=== PATIENT | male | born 1945 | race Caucasian/White ===

== ENCOUNTER 2016-09-19 17:22 | Inpatient (IN) | payer MEDICARE, OTHER ==
[~2016-09-19] VITALS: Ht 172.7 cm; Wt 80.6 kg
[~2016-09-19 17:22] MED LIST: DIOVAN HCT 160/1 TAB PO; LIPITOR10 MG PO; MULTI-DAY VITAM1 TAB PO; XANAX0.5 MG PO
[2016-09-19] MEDS ORDERED: ED-SPAZ0.125 MG PO (17:42)
[2016-09-19] MEDS ORDERED: CIPRO500 MG PO (17:44)
[2016-09-19 17:45] VITALS: BP 117/71; Ht 172.7 cm; Wt 80.6 kg
[2016-09-19 18:35] LABS: HEMATOCRIT 40.7 % (42.0-54.0); HEMOGLOBIN 14.6 g/dL (13.5-17.5); MCHC 35.9 g/dL (31.0-37.0); MCV 94.7 fL (80.0-100.0); MEAN PLATELET VOLUME 9.9 fL (7.4-10.4); PLATELET COUNT 171 10x3/uL (130-400); RDW 12.7 % (11.5-14.5); WBC 21.8 10x3/uL (4.8-10.8)
[2016-09-19 18:58] LABS: ALBUMIN 3.5 g/dL (3.4-5.0); ALKALINE PHOSPHATASE 68 U/L (46-116); ALT (SGPT) 21 U/L (10-68); AMYLASE - SERUM 28 U/L (25-115); CALC OSMOLALITY 279 mosm/kg (275-300); CALCIUM 8.8 mg/dL (8.5-10.1); CARBON DIOXIDE 26.2 mmol/L (21.0-32.0); CHLORIDE - SERUM 102 mmol/L (98-107); CREATININE - SERUM 0.7 mg/dL (0.6-1.3); GLUCOSE 112 mg/dL (74-106); LIPASE 88 U/L (73-393); POTASSIUM - SERUM 3.4 mmol/L (3.5-5.1); PROTEIN - SERUM 6.4 g/dL (6.4-8.2); SODIUM 140 mmol/L (136-145); UREA NITROGEN 13 mg/dL (7-18); eGFR NON AFRICAN AMERICAN > 90 mL/min (90-120)
[2016-09-19 19:00] VITALS: BP 105/64
[2016-09-19 19:02] LABS: EOSINOPHILS 4 % (0-7); LYMPHOCYTES 12 % (15-50); MONOCYTES 3 % (2-11); NEUTROPHILS 81 % (40-80); PLATELET ESTIMATE NORMAL
[2016-09-20] VITALS: BP 107/68
[2016-09-20 04:34] VITALS: BP 105/63
--- NOTE | 2016-09-20 05:40 | NUR ---
NURSE ROUNDS 09/19/16 20:30 - PT LYING IN BED, FAMILY AT BEDSIDE. PT REQUESTED SOMETHING TO EAT, HOWEVER, I EXPLAINED THE NEED FOR GUT REST. I HAVE GIVEN PT ICE CHIPS UNTIL PT CAN BE ADVANCED IN HIS DIET. CONTINUE TO MONITOR CLOSELY.
[2016-09-20 06:00] LABS: BASOPHILS 0.1 % (0-2); EOSINOPHILS 0.8 % (0-7); HEMATOCRIT 38.6 % (42.0-54.0); HEMOGLOBIN 13.6 g/dL (13.5-17.5); IMMATURE GRANULOCYTES 0.3 % (0-5); LYMPHOCYTES 17.6 % (15-50); MCH 33.3 pg (26.0-34.0); MCHC 35.2 g/dL (31.0-37.0); MCV 94.6 fL (80.0-100.0); MEAN PLATELET VOLUME 10.3 fL (7.4-10.4); NEUTROPHILS 75.2 % (40-80); PLATELET COUNT 178 10x3/uL (130-400); RBC 4.08 10x6/uL (4.20-6.10); RDW 12.7 % (11.5-14.5)
[2016-09-20 06:03] LABS: WBC 14.6 10x3/uL (4.8-10.8)
[2016-09-20 06:12] LABS: CALC OSMOLALITY 276 mosm/kg (275-300); CALCIUM 8.5 mg/dL (8.5-10.1); CARBON DIOXIDE 27.7 mmol/L (21.0-32.0); CHLORIDE - SERUM 104 mmol/L (98-107); CREATININE - SERUM 0.7 mg/dL (0.6-1.3); GLUCOSE 113 mg/dL (74-106); POTASSIUM - SERUM 3.3 mmol/L (3.5-5.1); SODIUM 139 mmol/L (136-145); eGFR NON AFRICAN AMERICAN > 90 mL/min (90-120)
[2016-09-20 06:18] LABS: UREA NITROGEN 8 mg/dL (7-18)
--- NOTE | 2016-09-20 07:45 | NUR ---
AM ROUNDING DOME WITH NO COMPLAINTS FROM PATIENT AT PRESENT TIME. NO PAIN. LEFT FA SEEN WITH 1/2 NS INFUSING AT 125 CC/HR. ON EP, POTASSIUM BEEN SUPPLEMENTED. WILL MONITOR AND SEE IF WE CAN GET SOME FOOD FOR HIM. DR LARIOS IS ON THE FLOOR.
[2016-09-20 08:19] VITALS: BP 106/65
--- NOTE | 2016-09-20 08:27 | NUR ---
UA SENT TO LAB ORDERED.
[2016-09-20 08:58] LABS: APPEARANCE CLEAR (CLEAR); BILIRUBIN NEGATIVE (NEGATIVE); COLOR YELLOW (YELLOW); GLUCOSE NEGATIVE (NEGATIVE); KETONE NEGATIVE (NEGATIVE); LEUKOCYTE ESTERASE NEGATIVE (NEGATIVE); NITRITE NEGATIVE (NEGATIVE); PROTEIN NEGATIVE (NEGATIVE); SPECIFIC GRAVITY 1.005 (1.005-1.020); UROBILINOGEN NORMAL (NORMAL)
[2016-09-20 08:59] LABS: BACTERIA FEW /hpf (NONE SEEN); EPITHELIAL CELLS RARE /hpf (0-5); RED CELLS - URINE 0-5 /hpf (0-5); WHITE CELLS - URINE RARE /hpf (0-5)
--- NOTE | 2016-09-20 09:18 | NUR ---
CALLED DR LARIOS OFFICE R/T BLOOD PRESSURE 106/65 TO ASK ABOUT HOLDING DIOVAN AND HCTZ FOR THIS AM. AWAITING CALL BACK.
--- NOTE | 2016-09-20 09:43 | NUR ---
NEW ORDERS PER DR LARIOS.
--- NOTE | 2016-09-20 10:38 | NUR ---
PER RT, O2 LOWERED TO 8L PER OXIMIZER. 1036-RT TO LOWER O2 TO 6L PER OXIMIZER.
--- NOTE | 2016-09-20 11:27 | NUR ---
K+ RE-DRAW WITH RESULTS OF 3.8
[2016-09-20 12:06] VITALS: BP 107/68
--- NOTE | 2016-09-20 15:15 | NUR ---
PATIENT HAS BEEN UP AMBULATING IN HALLWAY SEVERAL TIMES THIS SHIFT. DENIES NEEDS.
--- NOTE | 2016-09-20 15:40 | NUR ---
CALLED TO ROOM WITH PATIENT WANTING AN IBUPROFEN FOR HIS RIGHT ARM (SHOULDER PAIN). STATES THAT HE TAKE 1-2 A DAY. I TOLD HIM THAT WE DID NOT HAVE ANY ORDERED FOR HIM BUT I WOULD BE HAPPY TO CALL THE DOCTOR. HE SAID NO THAT IT WAS NOT THAT BAD.
[2016-09-20 15:47] VITALS: BP 104/67
--- NOTE | 2016-09-20 18:03 | NUR ---
MIRALAX GIVEN TO PATIENT ORDERED MIXED WITH WATER. DENIES ANY NEEDS AT THIS TIME.
[2016-09-20 21:00] VITALS: BP 128/76
[2016-09-21 00:32] VITALS: BP 136/87
[2016-09-21 04:05] VITALS: BP 137/90
[2016-09-21 05:41] LABS: BASOPHILS 0.1 % (0-2); EOSINOPHILS 3.4 % (0-7); HEMATOCRIT 38.1 % (42.0-54.0); HEMOGLOBIN 13.2 g/dL (13.5-17.5); IMMATURE GRANULOCYTES 0.3 % (0-5); LYMPHOCYTES 29.6 % (15-50); MCH 33.2 pg (26.0-34.0); MCHC 34.6 g/dL (31.0-37.0); MCV 95.7 fL (80.0-100.0); MEAN PLATELET VOLUME 10.3 fL (7.4-10.4); MONOCYTES 7.4 % (2-11); NEUTROPHILS 59.2 % (40-80); PLATELET COUNT 170 10x3/uL (130-400); RBC 3.98 10x6/uL (4.20-6.10); RDW 12.9 % (11.5-14.5)
[2016-09-21 05:53] LABS: CALC OSMOLALITY 277 mosm/kg (275-300); CALCIUM 8.2 mg/dL (8.5-10.1); CARBON DIOXIDE 26.4 mmol/L (21.0-32.0); CHLORIDE - SERUM 107 mmol/L (98-107); CREATININE - SERUM 0.6 mg/dL (0.6-1.3); GLUCOSE 102 mg/dL (74-106); POTASSIUM - SERUM 3.5 mmol/L (3.5-5.1); SODIUM 141 mmol/L (136-145); eGFR NON AFRICAN AMERICAN > 90 mL/min (90-120)
[2016-09-21 05:58] LABS: UREA NITROGEN 5 mg/dL (7-18)
[2016-09-21] MEDS ORDERED: FLAGYL500 MG PO (06:58)
[2016-09-21] MEDS ORDERED: MIRALAX17 GM PO (06:59)
--- NOTE | 2016-09-21 07:18 | NUR ---
AM ROUNDING DONE WITH PATIENT LAYING ON BACK APPEARING TO BE ASLEEP. RESP ARE EVEN AND NON LABORED. WHILE WRITING ON THE WHITE BOARD, HE WAKES UP AND STATES THAT DR LARIOS WILL BE DISCHARGING HIM. ON EP, LAB VALUES ARE GOOD. ON ROOM AIR. D5NS INFUSING AT 50 CC/HR WITHOUT PROBLEMS TO LEFT FA. WILL MONITOR.
[2016-09-21 08:18] VITALS: BP 110/65
--- NOTE | 2016-09-21 09:55 | NUR ---
SALINE LOCK REMOVED WITH CATH TIP INTACT. VERBAL AND WRITTEN DISCHARGE INSTRUCTIONS GIVEN TO PATIENT AND . AGAIN, I EXPLAINED WHAT WAS CONSIDERED A FULL LIQUID DIET UNTIL SEEN BY DR LARIOS. DISCHARGED HOME VIA WHEELCHAIR.
--- NOTE | 2016-09-21 10:03 | NUR ---
Patient Name: CARMELO ZELAYA Admission Status: Elective Accout number: [id number] Admission Date: 09-19-2016 : 1945 Admission Diagnosis: Attending: JORDIN Current LOS: 2 Anticipated DC Date: 09-21-2016 Planned Disposition: Home Primary Insurance: MEDICARE PART A ONLY Discharge Planning Comments: * Is the patient Alert and Oriented? Yes 0 * How many steps to enter\exit or inside your home? NONE 0 * PCP DR. LARIOS 0 * Pharmacy [facility] 0 * Preadmission Environment Home Alone 0 * ADLs Independent 0 * Equipment None 0 * Other Equipment NO MEDICAL EQUIPMENT PROVIDER PREFERENCE 0 * List name and contact numbers for known caregivers / representatives who currently or will assist patient after discharge: GODWIN RODRIGUEZ, FRIEND, 0 * Community resources currently utilized None 0 * Please name any agencies selected above. NONE 0 * Additional services required to return to the preadmission environment? No 0 * Can the patient safely return to the preadmission environment? Yes 0 * Has this patient been hospitalized within the prior 30 days at any hospital? No 0 CM MET WITH PT IN ROOM TO DISCUSS DISCHARGE PLANNING AND NEEDS. PT REPORTS LIVING AT HOME INDEPENDENTLY AND ALONE, HIS FRIEND IS WITH HIM MOST OF THE TIME BUT DOES NOT LIVE WITH HIME. PT HAS NO MEDICAL EQUIPMENT AND NO OUTSIDE SERVICES ASSISTING IN THE HOME. CM DISCUSSED AVAILABILITY OF HOME HEALTH, REHAB SERVICES AND MEDICAL EQUIPMENT. PT DENIES DISCHARGE NEEDS, REPORTS HIS FRIEND IS HERE NOW TO PICK HIM UP FOR TRANPORT HOME NOW. BEDSIDE NURSE NOTIFIED. Poolroom Table Attendant: Pino Robison
== END 2016-09-21 09:58 | disposition home or self-care (01) | DRG 392 ==
LOC: D.M2 17:22
PROVIDERS: ADMIT Family Medicine
DX: K57.32 Diverticulitis of large intestine without perforation or abscess without bleeding (principal); I10 Essential (primary) hypertension; E78.5 Hyperlipidemia, unspecified; Z86.010 Personal history of colon polyps; F41.9 Anxiety disorder, unspecified; Z72.0 Tobacco use

== ENCOUNTER 2016-10-31 09:57 | Inpatient (IN) | payer MEDICARE, OTHER ==
[2016-10-31] VITALS (10 sets, daily range): BP systolic 91–111; BP diastolic 52–71; BMI 28.1
[~2016-10-31] VITALS: Ht 172.7 cm; Wt 83.9 kg
[~2016-10-31 09:57] MED LIST changes: +CIPRO500 MG PO; +ED-SPAZ0.125 MG PO; +FLAGYL500 MG PO; +MIRALAX17 GM PO
[2016-10-31 11:13] LABS: CALC OSMOLALITY 280 mosm/kg (275-300); CALCIUM 9.4 mg/dL (8.5-10.1); CARBON DIOXIDE 30.8 mmol/L (21.0-32.0); CHLORIDE - SERUM 102 mmol/L (98-107); CREATININE - SERUM 0.9 mg/dL (0.6-1.3); GLUCOSE 114 mg/dL (74-106); POTASSIUM - SERUM 3.9 mmol/L (3.5-5.1); SODIUM 140 mmol/L (136-145); UREA NITROGEN 15 mg/dL (7-18); eGFR NON AFRICAN AMERICAN 88 mL/min (90-120)
[2016-10-31 11:27] LABS: HEMATOCRIT 45.4 % (42.0-54.0); HEMOGLOBIN 15.9 g/dL (13.5-17.5); MCH 33.8 pg (26.0-34.0); MCV 96.4 fL (80.0-100.0); MEAN PLATELET VOLUME 10.2 fL (7.4-10.4); RBC 4.71 10x6/uL (4.20-6.10); RDW 13.8 % (11.5-14.5); WBC 10.7 10x3/uL (4.8-10.8)
--- NOTE | 2016-10-31 19:40 | NUR ---
PT ARRIVED FROM SURGERY ESCORTED BY OR NURSE. VITALS STABLE. PT IS AWAKE AND ORIENTED. IV LEFT FA PATENT WITH NS INFUSING A KVO. RUCKER CATHETER DRAINING TO GRAVITY WITH GREEN URINE IN COLLECTION BAG. DRESSING ON ABDOMIN CLEAN AND DRY. WILL MONITOR FOR NEEDS. VITALS EVERY 15 MINUTES. FAMILY MEMBERS ARE AT BEDSIDE.
--- NOTE | 2016-10-31 22:06 | NUR ---
VITALS STABLE REMAIN STABLE. DECREASED O2 FROM 4L TO 3L, WITH SPO2 99% AT THIS ASSESSMENT. GAVE ORAL CARE KIT AND EXPLAINED USE TO PT AND FAMILY MEMBER.
--- NOTE | 2016-10-31 22:07 | NUR ---
DRESSING CLEAN AND DRY ON ABDOMEN. VITALS STABLE.
[2016-11-01] VITALS (8 sets, daily range): BP systolic 91–106; BP diastolic 52–72; Ht 172.7 cm; Wt 83.9 kg
--- NOTE | 2016-11-01 05:52 | NUR ---
PT SITTING UP IN BED READING. NO NEEDS AT THIS TIME. CALL LIGHT WITHIN REACH.
--- NOTE | 2016-11-01 08:10 | NUR ---
NOTIFIED JIMY CLIFTON CRNA THAT PT WAS EXPERIENCING NUMBNESS FROM THE EPIDURAL ONLY ON THE RIGHT SIDE OF HIS BODY. HE STATED HE WOULD COME EVALUATE PATIENT.
--- NOTE | 2016-11-01 10:13 | NUR ---
CLERICAL PRODUCTION WORKER INITIATED AT THIS TIME PER ORDERS. SPOKE WITH JIMY CLIFTON CRNA AND WAS GIVEN A TELEPHONE ORDER TO START CLERICAL PRODUCTION WORKER SINCE THE EPIDURAL WAS NOT FUNTIONING PROPERLY. INSTRUCTED PT ON USE AND WITNESSED BY SOUMYA WADE. CALL LIGHT IN REACH, WILL CONTINUE WITH PLAN OF CARE.
--- NOTE | 2016-11-01 15:33 | NUR ---
PRN TYLENOL AND ONE TIME ORDER OF DILAUDID 1MG ADMINISTERED FOR INCREASED PAIN EVEN WITH USE OF TRANSFORMER ASSEMBLY SUPERVISOR PER TELEPHONE ORDERS FROM DR PEOPLES. ETCO2 MONITOR PLACED ON PATIENT. OXYGEN 95% ON 3L VIA NC. PT DENIES FURTHER NEEDS AT THIS TIME. WILL CONTINUE TO MONITOR PT.
--- NOTE | 2016-11-01 23:00 | NUR ---
PATIENT IN BED, READING BOOK. REQUESTED MORE ICE. BROUGHT HIM A NEW CUP OF ICE. HE DENIES NEEDS. BED IN LOWEST POSITION, CALL LIGHT IN REACH. BED RAILS UP X'S 2.
[2016-11-02] VITALS (7 sets, daily range): BP systolic 99–133; BP diastolic 59–68
--- NOTE | 2016-11-02 07:30 | NUR ---
PT ASSESSMENT COMPLETE AWAKE AND ALERT ORIENTED X 3 LUNGS CLEAR PT WITH TRANSVERSE INCISION NOTED WITH DRESSING IN TACT. HAS RUCKER WITH GREEN URINE NOTED.
--- NOTE | 2016-11-02 11:49 | OP ---
PATIENT NAME: CARMELO ZELAYA MEDICAL RECORD: [id number] :45 LOCATION:D.[id number] ADMISSION DATE:10/31/16 SURGEON: ROB PEOPLES MD DATE OF OPERATION: 10/31/2016 PREOPERATIVE DIAGNOSIS: History of recurrent bouts of diverticulitis. POSTOPERATIVE DIAGNOSES: History of recurrent bouts of diverticulitis. PROCEDURES: 1. Laparoscopic hand-assisted sigmoid colectomy. 2. Incidental appendectomy. SURGEON: Rob Peoples MD. VETERINARY TECHNICIAN: None. BLOOD LOSS: Minimal. ANESTHESIA: General. COMPLICATIONS: None. The risks, possible complications and alternatives to the procedure were explained to the patient. He elects to proceed. The discussion specifically included, but was not limited to, bleeding requiring emergency reoperation, infection, intestinal injury as well as possible need for an open procedure. OPERATIVE COURSE: The patient was conveyed to the operating room electively on 10/31/2016. General anesthesia was induced by anesthesia staff. The abdomen was sterilely prepped and draped. A transverse incision was accomplished 2 fingerbreadths above the pubic symphysis. Sharp dissection was carried out through the skin and subcutaneous tissue as well as Jeff fascia. The transverse fascia was incised. I entered the peritoneal cavity between the rectus muscles. A Gelport device was inserted. I incised in the enterosigmoid fossa on the left. I incised up along the left white line of Toldt. I chose the distal extent of my resection to be the taenia as they splay out to become the rectum. I stapled across the large bowel at this point with a SHILPA-75 stapler. I began to takedown the mesocolon of the sigmoid colon. I identified both the ureters, which were protected and undamaged during the operation. I chose the proximal extent of my resection to be the junction of the descending colon and sigmoid colons. I stapled across the colon here with the SHILPA-75 stapler. I performed a rttl-ni-slvs anastomosis. I brought the colon and rectum into apposition side by side. A small colotomy and small proctotomy were accomplished. Anvils of the SHILPA-75 stapler were advanced and fired. The resulting colorectal defect was closed with a single firing of the TA 60 stapler. Attention was then turned to the appendix. The indication for the appendectomy was to remove it as a source of diagnostic confusion in the future should the patient have a recurrence or persistence of abdominal pain. The mesoappendix was taken down with the EnSeal device. I stapled across the tip of the cecum with a SHILPA-75 stapler. OPERATIVE REPORT [id number] NATHALIECARMELO I irrigated in the pelvis and aspirated. There was no bleeding. I reperitonealized with running #1 Vicryls. The rectus muscles were approximated in the midline with interrupted horizontal mattress #1 Vicryls. The transverse fascia was approximated with running #1 Vicryls. Jeff fascia was approximated with interrupted 3-0 Vicryls. The subdermis was approximated with interrupted 3-0 Vicryls. The skin was approximated with a running intracuticular 3-0 Vicryl. A sterile dressing was applied. The patient was then extubated and conveyed to post-anesthesia care unit where he was in stable condition. TRANSINT:[id number] Voice Confirmation ID: [id number] DOCUMENT ID: [id number] ROB PEOPLES MD at 1149 CC: HERVE LARIOS MD [id number] DICTATION DATE: 10/31/161914 STEEL CHECKER: 10/31/162024 ADM IN [facility] [address] [id number]
--- NOTE | 2016-11-02 11:49 | HP ---
PATIENT: CARMELO ZELAYA MEDICAL RECORD: [id number] ACCOUNT: [id number] LOCATION:D.MS [id number] : [birth year] ADMISSION DATE: 10/31/16 HISTORY AND PHYSICAL EXAMINATION ADDENDUM: I have personally reviewed the CT images. He has a good bit of redundant sigmoid colon. This may make it a possibility to perform a nhia-zn-hwqv anastomosis. I told him that I would perform an incidental appendectomy in order to avoid diagnostic confusion in the future should the patient have a recurrence or persistence of abdominal pain. He has been drinking Equate in order to improve his nutritional state. We discussed the risks, possible complications and alternatives to the procedure. We also discussed the fact that I would perform an incidental appendectomy in order to avoid diagnostic confusion in the future should the patient have a recurrence or persistence of pain. TRANSINT:[id number] Voice Confirmation ID: [id number] DOCUMENT ID: [id number] ROB PEOPLES MD at 1149 CC: [id number] DICTATION DATE: 10/31/16 164 PROGRAM WRITER: 10/31/16 1653 ADM IN [facility] [address] [place] [address]
--- NOTE | 2016-11-02 13:16 | NUR ---
Patient Name: CARMELO ZELAYA Admission Status: Elective Accout number: [id number] Admission Date: 10-31-2016 : 1945 Admission Diagnosis:OTHER SPECIFIED CONGENITAL MALFORMATIONS OF INTESTINE Attending: DIANE Current LOS: 2 Anticipated DC Date: 11-03-2016 Planned Disposition: Home Primary Insurance: MEDICARE PART A ONLY Discharge Planning Comments: CM MET WITH PATIENT REGARDING D/C NEEDS AND PLANS. PATIENT STATED HIS FRIEND (GODWIN) WILL DRIVE HIM HOME AT DISCHARGE. PATIENT STATED HE HAS NO STAIRS TO ENTER HOME AND 1 STAIRCASE AND 2 STEPS INSIDE WITH RAILS. PATIENT STATED DR. LARIOS IS HIS DOCTOR AND USES [facility]. PATIENT STATED HE IS INDEPENDENT WITH HIS CARE AND HAS NO DME AT HOME. PATIENT DOES NOT WANT HOME HEALTH. CM WILL CONTINUE TO FOLLOW PATIENT WITH D/C NEEDS AND PLANS. PCP DR[phone] GODWIN (FRIEND) [phone] Vegetable Canner: Doris Trevino Is the patient Alert and Oriented? Yes 0 * How many steps to enter\exit or inside your home? STAIRCASE 0 * PCP DR. LARIOS 0 * [facility] * Preadmission Environment Home with Family 0 * ADLs Independent 0 * Equipment None 0 * Other Equipment HANDICAP BATHROOM 0 * List name and contact numbers for known caregivers / representatives who currently or will assist patient after discharge: GODWIN DREWMario (FRIEND) [phone] 0 * Community resources currently utilized None 0 * Additional services required to return to the preadmission environment? Yes 0 * Can the patient safely return to the preadmission environment? Yes 0 * Has this patient been hospitalized within the prior 30 days at any hospital? No 0 Grand Total: 0
--- NOTE | 2016-11-02 18:44 | NUR ---
PT RUCKER CATHETER DISCONTINUED PER ORDER TOLERATED WELL.
--- NOTE | 2016-11-02 23:30 | NUR ---
PATIENT IS AWAKE, ALERT AND ORIENTED X'S 4. RESPIRATIONS AND UNLABORED ON ROOM AIR. NO SIGNS OF DISTRESS NOTED. PATIENT DENIES NEEDS AT THIS TIME.
[2016-11-02 23:56] LABS: CREATININE - SERUM 0.6 mg/dL (0.6-1.3)
--- NOTE | 2016-11-03 02:00 | NUR ---
PATIENT HAS REPORTED THAT HE HAS NOW URINATED TWICE AND HAD ANOTHER BM.
[2016-11-03 03:58] VITALS: BP 155/74
--- NOTE | 2016-11-03 07:30 | NUR ---
ASSESSMENT PER FLOW SHEET.PT WITHOUT DISTRESS.DSG TO LOWER ABD INCISION CDI.PT WITHOUT DISTRESS.CALL LIGHT IN REACH
[2016-11-03 09:02] VITALS: BP 130/76
[2016-11-03 12:44] VITALS: BP 123/64
--- NOTE | 2016-11-03 19:38 | NUR ---
REMAINS WITHOUT CHANGE FROM INITIAL SHIFT ASSESSMENT. HAS AMBULATED IN HALLS TODAY AND TOLERATING FL DIET.CONT PLAN OF CARE
[2016-11-04 04:00] VITALS: BP 124/63
[2016-11-04 06:01] LABS: BASOPHILS 0.1 % (0-2); EOSINOPHILS 2.6 % (0-7); HEMATOCRIT 35.3 % (42.0-54.0); HEMOGLOBIN 12.5 g/dL (13.5-17.5); IMMATURE GRANULOCYTES 0.1 % (0-5); LYMPHOCYTES 24.2 % (15-50); MCH 33.2 pg (26.0-34.0); MCHC 35.4 g/dL (31.0-37.0); MCV 93.6 fL (80.0-100.0); MEAN PLATELET VOLUME 10.4 fL (7.4-10.4); MONOCYTES 7.4 % (2-11); NEUTROPHILS 65.6 % (40-80); RBC 3.77 10x6/uL (4.20-6.10); RDW 12.9 % (11.5-14.5); WBC 8.7 10x3/uL (4.8-10.8)
[2016-11-04 06:07] LABS: PLATELET COUNT 165 10x3/uL (130-400)
[2016-11-04 06:48] LABS: ALBUMIN 2.7 g/dL (3.4-5.0); ALKALINE PHOSPHATASE 57 U/L (46-116); ALT (SGPT) 15 U/L (10-68); BILIRUBIN - TOTAL 0.69 mg/dL (0.2-1.3); CALC OSMOLALITY 274 mosm/kg (275-300); CALCIUM 8.1 mg/dL (8.5-10.1); CHLORIDE - SERUM 105 mmol/L (98-107); CREATININE - SERUM 0.4 mg/dL (0.6-1.3); GLUCOSE 84 mg/dL (74-106); MAGNESIUM - SERUM 1.8 mg/dL (1.8-2.4); PHOSPHOROUS 2.1 mg/dL (2.5-4.9); POTASSIUM - SERUM 3.1 mmol/L (3.5-5.1); SODIUM 140 mmol/L (136-145); UREA NITROGEN 5 mg/dL (7-18); eGFR NON AFRICAN AMERICAN > 90 mL/min (90-120)
--- NOTE | 2016-11-04 07:30 | NUR ---
ASSESSMENT PER FLOW SHEET.PT WITHOUT DISTRESS.DRESSING TO ABDOMEN CDI.CALL LIGHT IN REACH
[2016-11-04 09:41] VITALS: BP 136/75
[2016-11-04 12:33] VITALS: BP 113/70
[2016-11-04] MEDS ORDERED: HYDROCODON-ACE1 EAC7 PO (14:19)
--- NOTE | 2016-11-04 14:56 | NUR ---
DISCHARGE INSTRUCTIONS,STATES UNDERSTANDING.IV DCD X2 WITH CATH TIP INTACT,LEFT UNIT VIA WHEELCHAIR FOR TRANSPORT HOME.
--- NOTE | 2016-11-05 15:04 | DS ---
PATIENT:CARMELO ZELAYA :[birth year] MEDICAL RECORD: [id number] DISCHARGE SUMMARY ADMISSION DATE: 10/31/16 DISCHARGE DATE: 11/04/16 PRINCIPAL DIAGNOSES: Diverticulosis/diverticulitis with segmental serosal fibrous adhesions and focal mesenteric recent hemorrhage. PROCEDURE: Hand-assisted laparoscopic sigmoid colectomy with incidental appendectomy. OTHER DIAGNOSES: Blood loss anemia not requiring transfusion, hypophosphatemia and, hypoxia. HOSPITAL COURSE: The patient was admitted for surgery. He underwent the above operative procedure. Initially, his pain was suboptimally controlled with an epidural pain pump. This was removed. I then converted him to a patient-controlled analgesia pump. Bowel function returned. His diet was advanced. He is being dismissed home on [place] for pain. Discharge instructions have been given to the patient verbally by me. He is not to do any lifting or straining. He is to keep his stools soft and he takes MiraLax at home. I will see him in the office in 2-3 weeks. TRANSINT:[id number] Voice Confirmation ID: [id number] DOCUMENT ID: [id number] ROB PEOPLES MD at 1504 CC: [id number] DICTATION DATE: 11/04/16 1414 RETAIL SALES LEAD: 11/04/161 DIS IN 11/04/[id number] [place] [address]
== END 2016-11-04 14:56 | disposition home or self-care (01) | DRG 331 ==
LOC: D.SDCHOLD 09:57 → D.MS 09:57 → D.SDCHOLD 13:00 → D.MS 19:05
PROVIDERS: Anesthesiology; ADMIT Surgery
PROC: 0DTN0ZZ Resection of Sigmoid Colon, Open Approach (ICD-10-PCS; principal; 2016-10-31 13:00)
PROC: 0DTJ0ZZ Resection of Appendix, Open Approach (ICD-10-PCS; 2016-10-31 13:00)
DX: K57.32 Diverticulitis of large intestine without perforation or abscess without bleeding (principal); D50.0 Iron deficiency anemia secondary to blood loss (chronic); E83.39 Other disorders of phosphorus metabolism; R09.02 Hypoxemia; K66.0 Peritoneal adhesions (postprocedural) (postinfection); R14.0 Abdominal distension (gaseous)

== ENCOUNTER 2016-11-26 04:19 | Inpatient (IN) | payer MEDICARE, OTHER ==
[~2016-11-26] VITALS: Ht 172.7 cm; Wt 81.6 kg
[~2016-11-26 04:19] MED LIST changes: +HYDROCODON-ACE1 EAC7 PO
[2016-11-26 04:57] LABS: BASOPHILS 0.2 % (0-2); EOSINOPHILS 0.4 % (0-7); HEMATOCRIT 40.4 % (42.0-54.0); HEMOGLOBIN 14.1 g/dL (13.5-17.5); IMMATURE GRANULOCYTES 0.2 % (0-5); LYMPHOCYTES 19.2 % (15-50); MCH 33.1 pg (26.0-34.0); MCHC 34.9 g/dL (31.0-37.0); MCV 94.8 fL (80.0-100.0); MEAN PLATELET VOLUME 10.3 fL (7.4-10.4); MONOCYTES 7.2 % (2-11); NEUTROPHILS 72.8 % (40-80); PLATELET COUNT 192 10x3/uL (130-400); RBC 4.26 10x6/uL (4.20-6.10); RDW 13.2 % (11.5-14.5); WBC 8.4 10x3/uL (4.8-10.8)
[2016-11-26 05:10] LABS: ALBUMIN 4.2 g/dL (3.4-5.0); ALKALINE PHOSPHATASE 91 U/L (46-116); ALT (SGPT) 43 U/L (10-68); CALC OSMOLALITY 281 mosm/kg (275-300); CALCIUM 9.4 mg/dL (8.5-10.1); CARBON DIOXIDE 28.4 mmol/L (21.0-32.0); CHLORIDE - SERUM 101 mmol/L (98-107); CREATININE - SERUM 0.8 mg/dL (0.6-1.3); LIPASE 93 U/L (73-393); POTASSIUM - SERUM 3.8 mmol/L (3.5-5.1); PROTEIN - SERUM 7.4 g/dL (6.4-8.2); SODIUM 140 mmol/L (136-145); UREA NITROGEN 16 mg/dL (7-18); eGFR NON AFRICAN AMERICAN > 90 mL/min (90-120)
[2016-11-26 05:29] LABS: GLUCOSE 128 mg/dL (74-106)
[2016-11-26 08:21] LABS: APPEARANCE CLEAR (CLEAR); COLOR YELLOW (YELLOW); LEUKOCYTE ESTERASE TRACE (NEGATIVE)
[2016-11-26 08:22] LABS: AMORPHOUS SEDIMENT >1+ /lpf (NONE SEEN); BACTERIA FEW /hpf (NONE SEEN); BILIRUBIN NEGATIVE (NEGATIVE); EPITHELIAL CELLS OCC /hpf (0-5); GLUCOSE NEGATIVE (NEGATIVE); KETONE NEGATIVE (NEGATIVE); MUCUS <1+ /lpf (NONE SEEN); NITRITE NEGATIVE (NEGATIVE); PROTEIN 1+ mg/dL (NEGATIVE); RED CELLS - URINE 0-5 /hpf (0-5); UROBILINOGEN NORMAL (NORMAL); WHITE CELLS - URINE 0-5 /hpf (0-5)
[2016-11-26 09:30] LABS: APTT 29.5 SECONDS (22.8-39.4); INR 0.95 (0.85-1.17); PROTIME 12.5 SECONDS (11.6-15.0)
--- NOTE | 2016-11-26 11:00 | NUR ---
PT TO ROOM 2207 FROM ER VIA WHEELCHAIR. HE IS WITHOUT DISTRESS.DENIES PAIN, BUT SAYS HIS THROAT AND NOSE ARE SORE. NGT RIGHT NARE TO INT WALL SUCTION WITH LIGHT BROWN,PINK TINTED DRAINAGE IN CANISTER.NPO.ASSESSMENT PER FLOW SHEET.ORIENTATION TO ROOM.
[2016-11-26 11:06] VITALS: BP 138/72; BMI 27.4
--- NOTE | 2016-11-26 12:00 | NUR ---
PT WITHOUT NAUSEA.STATES PAIN 3/10,BUT IS STILL IN HIS NOSE. MONITOR FOR NEEDS
--- NOTE | 2016-11-26 19:23 | NUR ---
REMAINS WITHOUT DISTRESS,WITHOUT NEEDS.CALL LIGHT IN REACH.CONT PLAN OF CARE
--- NOTE | 2016-11-26 19:39 | NUR ---
REPORT RECEIVED FROM WARRANT CLERK NURSE. CALL LIGHT IN REACH.
[2016-11-26 20:00] VITALS: BP 117/69
--- NOTE | 2016-11-26 21:53 | NUR ---
ASSESSMENT COMPLETED. NGT TO SUCTION. EXPLAINED IMPORTANCE OF SCDs AND RUCKER CATHETER BUT PATIENT REFUSED BOTH. FIREARMS SPECIALIST IN USE FOR PAIN CONTROL. NO OTHER NEEDS VOICED. CALL LIGHT IN REACH. WILL CONTINUE WITH PLAN OF CARE.
--- NOTE | 2016-11-26 23:30 | NUR ---
DENIES NEEDS AT THIS TIME. CALL LIGHT IN REACH.
[2016-11-27] VITALS: BP 118/71
--- NOTE | 2016-11-27 01:29 | NUR ---
NEW BAG OF NS SPIKED. NO DISTRESS NOTED AT THIS TIME. CALL LIGHT IN REACH.
--- NOTE | 2016-11-27 03:10 | NUR ---
EYES CLOSED RESPIRATIONS WITH EASE AND UNLABORED.
[2016-11-27 04:00] VITALS: BP 120/72
[2016-11-27 05:13] LABS: BASOPHILS 0.2 % (0-2); EOSINOPHILS 5.4 % (0-7); HEMATOCRIT 36.3 % (42.0-54.0); HEMOGLOBIN 12.4 g/dL (13.5-17.5); IMMATURE GRANULOCYTES 0.2 % (0-5); LYMPHOCYTES 30.1 % (15-50); MCH 33.1 pg (26.0-34.0); MCHC 34.2 g/dL (31.0-37.0); MCV 96.8 fL (80.0-100.0); MEAN PLATELET VOLUME 10.2 fL (7.4-10.4); MONOCYTES 6.5 % (2-11); NEUTROPHILS 57.6 % (40-80); PLATELET COUNT 161 10x3/uL (130-400); RBC 3.75 10x6/uL (4.20-6.10); RDW 13.5 % (11.5-14.5); WBC 6.5 10x3/uL (4.8-10.8)
[2016-11-27 05:31] LABS: CALC OSMOLALITY 279 mosm/kg (275-300); CALCIUM 8.3 mg/dL (8.5-10.1); CARBON DIOXIDE 27.9 mmol/L (21.0-32.0); CHLORIDE - SERUM 104 mmol/L (98-107); CREATININE - SERUM 0.8 mg/dL (0.6-1.3); GLUCOSE 94 mg/dL (74-106); POTASSIUM - SERUM 3.6 mmol/L (3.5-5.1); SODIUM 139 mmol/L (136-145); UREA NITROGEN 19 mg/dL (7-18); eGFR NON AFRICAN AMERICAN > 90 mL/min (90-120)
--- NOTE | 2016-11-27 05:33 | NUR ---
NEW ORDER FOR IV TYLENOL FOR HEADACHE. WAITING ON DOUGH CATCHER.
--- NOTE | 2016-11-27 06:14 | NUR ---
NO CHANGES IN INITIAL ASSESSMENT. CALL LIGHT IN REACH. STILL REFUSES SCDs. WILL CONTINUE WITH PLAN OF CARE.
[2016-11-27 08:21] VITALS: BP 136/77
[2016-11-27 11:58] VITALS: BP 130/81
[2016-11-27 12:17] VITALS: Ht 172.7 cm; Wt 81.6 kg
--- NOTE | 2016-11-27 12:41 | NUR ---
NGT CLAMPED PER
--- NOTE | 2016-11-27 16:19 | NUR ---
REMAINS WITHOUT NAUSEA.NGT STILL CLAMPED.TOLERATING CLEAR LIQUID DIET
--- NOTE | 2016-11-27 18:36 | NUR ---
HAS TOLERATED CLEAR LIQUID DINNER TRAY AND EXTERA CLEAR LIQUIDS WITHOUT EMESIS. NGT CLAMPED SINCE 1245 TODAY.NO RESIDUAL OF RIGHT NOW.AMBULATED IN HALLS X3 TODAY.DENIES PAIN.PASSING MORE GAS PER PT.CONT PLAN OF CARE
--- NOTE | 2016-11-27 19:40 | NUR ---
RECIEVED SHIFT REPORT. PT IS LYING IN BED. ALERT AND ORIENTED AND ABLE TO VERBALIZE NEEDS. IV IS PATENT AND FLUIDS ARE RUNNING PER ORDER. NGT TO RIGHT NARE PATENT AND CLAMPED AT THIS TIME. PT IS AMBULATORY BUT WAS INSTRUCTED TO CALL FOR ANY ASSISTANCE NEEDED. PT DENIES ANY PAIN AT THIS TIME WITH BOX FOLDING MACHINE OPERATOR PUMP. NO NEEDS ARE VERBALIZED AT THIS TIME. WILL CONTINUE TO MONITOR. SIDE RAILS ARE UP X 2. BED IS IN LOWEST POSITION. CALL LIGHT IS WITHIN REACH.
[2016-11-27 20:00] VITALS: BP 136/73
--- NOTE | 2016-11-27 20:37 | NUR ---
SHIFT ASSESSMENT COMPLETED. NIGHT MEDS GIVEN WITH NO PROBLEMS. NO NEEDS ARE VOICED. WILL MONITOR. SIDE RAILS X 2. BED LOW. CALL LIGHT IN REACH.
--- NOTE | 2016-11-28 02:34 | NUR ---
PT C/O INDIGESTION. CALL PLACED TO FINANCE TEACHER MD. WILL AWAIT ORDERS.
--- NOTE | 2016-11-28 03:07 | NUR ---
CALL RECIEVED BACK FROM SENIOR MORTGAGE LOAN PROCESSOR [place]. NEW ORDERS RECIEVED.
--- NOTE | 2016-11-28 03:15 | NUR ---
CALL PLACED TO HOME WEATHERIZING WORKER SANG FOR MEDICATION TO BE PULLED. HOME WEATHERIZING WORKER STATED SHE WAS SITTING ON THE MONITORS AND WOULD BE ABOUT 30 MINUTES WHILE MAINTENANCE TRUCK DRIVER LUNCH BREAK BEING TAKEN.
[2016-11-28 04:00] VITALS: BP 131/83
[2016-11-28 05:17] LABS: BASOPHILS 0.1 % (0-2); EOSINOPHILS 3.5 % (0-7); HEMOGLOBIN 11.8 g/dL (13.5-17.5); IMMATURE GRANULOCYTES 0.3 % (0-5); LYMPHOCYTES 23.1 % (15-50); MCH 33.1 pg (26.0-34.0); MCHC 34.7 g/dL (31.0-37.0); MCV 95.5 fL (80.0-100.0); MEAN PLATELET VOLUME 10.5 fL (7.4-10.4); MONOCYTES 6.6 % (2-11); NEUTROPHILS 66.4 % (40-80); PLATELET COUNT 150 10x3/uL (130-400); RBC 3.56 10x6/uL (4.20-6.10); RDW 13.1 % (11.5-14.5); WBC 7.5 10x3/uL (4.8-10.8)
[2016-11-28 05:48] LABS: CALC OSMOLALITY 281 mosm/kg (275-300); CALCIUM 8.5 mg/dL (8.5-10.1); CARBON DIOXIDE 23.4 mmol/L (21.0-32.0); CHLORIDE - SERUM 107 mmol/L (98-107); CREATININE - SERUM 0.6 mg/dL (0.6-1.3); GLUCOSE 92 mg/dL (74-106); POTASSIUM - SERUM 3.4 mmol/L (3.5-5.1); SODIUM 141 mmol/L (136-145); UREA NITROGEN 15 mg/dL (7-18); eGFR NON AFRICAN AMERICAN > 90 mL/min (90-120)
[2016-11-28 08:18] VITALS: BP 147/81
--- NOTE | 2016-11-28 08:39 | NUR ---
AM MEDS.NGT DC'D ORDERED. PT TOLERATED WELL.STILL REPORTNG PASSING OF GAS AND LARGE STOOL LAST NIGHT.REMAINS WITHOUT NAUSEA,BUT C/O HEARTBURN.MONITOR FOR NEEDS
--- NOTE | 2016-11-28 10:59 | NUR ---
Patient Name: CARMELO ZELAYA Admission Status: ER Accout number: [id number] Admission Date: 11-26-2016 : 1945 Admission Diagnosis:UNSPECIFIED INTESTINAL OBSTRUCTION Attending: ROSELINE KENDALL Current LOS: 2 Anticipated DC Date: 11-28-2016 Planned Disposition: Home Primary Insurance: MEDICARE PART A ONLY Discharge Planning Comments: CM met with patient to assess discharge planning needs. States that he is independent with his care at home. He lives with his friend Godwin([phone]). He has one staircase and 2 steps inside with rails. He refuses with HH and said his brother in law Brennan Cardozo will be the one to take him home today PCP: English CARRASCO Godwin (friend) [phone] Senior Master Scheduler: Justyna Baires * Is the patient Alert and Oriented? Yes 0 * How many steps to enter\exit or inside your home? 2 0 * PCP 0 * [facility] * Preadmission Environment Home with Family 0 * ADLs Independent 0 * Equipment None 0 * List name and contact numbers for known caregivers / representatives who currently or will assist patient after discharge: GODWIN(FRIEND) [phone] 0 * Community resources currently utilized None 0 * Additional services required to return to the preadmission environment? No 0 * Can the patient safely return to the preadmission environment? Yes 0 * Has this patient been hospitalized within the prior 30 days at any hospital? No 0 Grand Total: 0
[2016-11-28 14:24] VITALS: BP 132/62
--- NOTE | 2016-11-28 14:25 | NUR ---
PT IV DISCONTINUED TO RIGHT WRIST WITH TIP INTACT. DRESSING APPLIED. DISCHARGE INSTRUCTIONS REVIEWED WITH PATIENT AND QUESTIONS ANSWERED. AMBULATED TO FRONT DOOR WITH BELONGINGS.
== END 2016-11-28 14:26 | disposition home or self-care (01) | DRG 390 ==
LOC: D.ER 04:19 → D.MS 09:25
PROVIDERS: Emergency Medicine; ADMIT Surgery
PROC: 0D9670Z Drainage of Stomach with Drainage Device, Via Natural or Artificial Opening (ICD-10-PCS; principal; 2016-11-26)
DX: K56.60 Unspecified intestinal obstruction (principal); I10 Essential (primary) hypertension

== ENCOUNTER → 2019-01-12 08:27 | Outpatient (CLI) | payer OTHER, MEDICARE ==
[2016-11-27 12:17] VITALS: BMI 27.3
== END | disposition home or self-care (01) ==
LOC: D.CT 01-07 08:30
PROVIDERS: ATTEND Nurse Practitioner
DX: R91.8 Other nonspecific abnormal finding of lung field (principal); J20.9 Acute bronchitis, unspecified